=== PATIENT | male | born 1975 | race Caucasian/White ===

== ENCOUNTER 2016-03-19 19:46 | Inpatient (IN) | payer OTHER ==
[2016-03-19 20:05] VITALS: BMI 36.3
--- NOTE | 2016-03-19 20:12 | HP ---
COWS - Scale Resting Pulse: 2= NE 101-120 Sweatin= Chills/Flushing Restless Observation: 1= Difficult to Sit Still Pupil Size: 0= Normal to Room Light Bone or Joint Aches: 2= Severe Diffuse Aches Runny Nose/ Eye Tearin= Runny Nose/Eyes GI Upset > 30mins: 3= Vomiting/Diarrhea Tremor Observation: 2= Slight Tremor Visible Yawning Observation: 1= 1-2x During Session Anxiety or Irritability: 2=Irritable/Anxious Goose Flesh Skin: 0=Smooth Skin COWS Score: 16 CIWA Score - CIWA Score Nausea/Vomitin Muscle Tremors: 4-Moderate,w/Arms Extend Anxiety: 4-Mod. Anxious/Guarded Agitation: 4-Moderately Restless Paroxysmal Sweats: 1-Minimal Palms Moist Orientation: 1-Uncertain about Date Tacttile Disturbances: 0-None Auditory Disturbances: 0-None Visual Disturbances: 0-None Headache: 0-None Present CIWA-Ar Total Score: 16 Admission ROS S - HPI Chief Complaint: withdrawal sx Allergies/Adverse Reactions: Allergies Allergy/AdvReac Type Severity Reaction Status Date / Time No Known Allergies Allergy Verified 03/19/16 20:08 History of Present Illness: 40 years old male with long history of opiate xanax nicotine dependence, has hepatitis c denies mental illness longest sobriety is 3 months is admitted to detox Exam Limitations: No Limitations - Ebola screening Have you traveled outside of the country in the last 21 days: No Have you had contact with anyone from an Ebola affected area: No Have you been sick,other than usual withdrawal symptoms: No Do you have a fever: No - Review of Systems Constitutional: Chills, Changes in sleep, Weight Stable EENT: reports: No Symptoms Reported Respiratory: reports: SOB with Exertion Cardiac: reports: Palpitations GI: reports: Nausea, Poor Fluid Intake, Vomiting, Indigestion, Abdominal cramping : reports: No Symptoms Reported Musculoskeletal: reports: Back Pain, Joint Pain, Muscle Pain, Neck Pain Integumentary: reports: Change in Color (both hands) Neuro: reports: Tremors Endocrine: reports: No Symptoms Reported Hematology: reports: No Symptoms Reported Psychiatric: reports: Judgement Intact, Mood/Affect Appropiate Other Systems: Reviewed and Negative Patient History - Patient Medical History Hx Anemia: No Hx Asthma: No Hx Chronic Obstructive Pulmonary Disease (COPD): No Hx Cancer: No Hx Cardiac Disorders: No Hx Congestive Heart Failure: No Hx Hypertension: No Hx Hypercholesterolemia: No Hx Pacemaker: No HX Cerebrovascular Accident: No Hx Seizures: No Hx Dementia: No Hx Diabetes: No Hx Gastrointestinal Disorders: Yes Hx Liver Disease: No Hx Genitourinary Disorders: No Hx Sexually Transmitted Disorders: No Hx Renal Disease (ESRD): No Hx Thyroid Disease: No Hx Human Immunodeficiency Virus (HIV): No Hx Hepatitis C: Yes Hx Depression: No Hx Suicide Attempt: No Hx Bipolar Disorder: No Hx Schizophrenia: No - Patient Surgical History Past Surgical History: No - PPD History Previous Implant?: Yes Documented Results: Negative w/o proof Implanted On Prior [facility] Admission?: No PPD to be Administered?: Yes - Smoking Cessation Smoking history: Current every day smoker Have you smoked in the past 12 months: Yes Aproximately how many cigarettes per day: 40 Cigars Per Day: 0 Hx Chewing Tobacco Use: No Initiated information on smoking cessation: Yes 'Breaking Loose' booklet given: 03/19/16 - Substance & Tx. History Hx Alcohol Use: Yes Hx Substance Use: Yes Substance Use Type: Alcohol, Cocaine, Opiates, Tranquilizers Hx Substance Use Treatment: Yes - Substances Abused Alcohol Route: Oral Frequency: Daily Amount used: 24oz x24 beer + volka pint Age of first use: 15 Date of Last Use: 03/19/16 Alprazolam (Xanax) Route: Oral Frequency: Daily Amount used: 4-6 mg Age of first use: 35 Date of Last Use: 03/19/16 Heroin Route: Injection Frequency: Daily Amount used: 30 bags Age of first use: 35 Date of Last Use: 03/19/16 Family Disease History - Family Disease History Family Disease History: Diabetes: Mother, Other: Father (no contact) Admission Physical Exam [facility] - Vital Signs Vital Signs: Vital Signs - 24 hr 03/19/16 19:59 Temperature 97.7 F Pulse Rate 101 H Respiratory 20 Rate Blood Pressure 158/94 - Physical General Appearance: Yes: Nourished, Appropriately Dressed, Mild Distress, Tremorous, Irritable, Sweating, Anxious HEENTM: Yes: Hearing grossly Normal, Normal ENT Inspection, Normocephalic, Normal Voice Respiratory: Yes: Chest Non-Tender, Lungs Clear, Normal Breath Sounds, No Respiratory Distress, No Accessory Muscle Use Neck: Yes: Supple, Trachea in good position Breast: Yes: Breasts Symetrical Cardiology: Yes: Regular Rhythm, Regular Rate, S1, S2 Abdominal: Yes: Non Tender, Soft Genitourinary: Yes: Within Normal Limits Back: Yes: Normal Inspection Musculoskeletal: Yes: full range of Motion, Gait Steady, Back pain, Muscle Pain Extremities: Yes: Normal Range of Motion, Non-Tender, Tremors, Other (both hands iv opiate) Neurological: Yes: Alert, Motor Strength 5/5, Normal Response, Depressed Affect Integumentary: Yes: Warm, Track [place] Lymphatic: Yes: Within Normal Limits - Diagnostic (1) Alcohol dependence with uncomplicated withdrawal Current Visit: Yes Status: Acute (2) Opioid dependence with withdrawal Current Visit: Yes Status: Acute (3) Sedative, hypnotic or anxiolytic dependence with withdrawal, uncomplicated Current Visit: Yes Status: Acute (4) GERD (gastroesophageal reflux disease) Current Visit: Yes Status: Acute Qualifiers: Esophagitis presence: without esophagitis Qualified Code(s): K21.9 - Gastro-esophageal reflux disease without esophagitis (5) Nicotine dependence Current Visit: Yes Status: Acute Qualifiers: Nicotine product type: cigarettes Substance use status: uncomplicated Qualified Code(s): F17.210 - Nicotine dependence, cigarettes, uncomplicated (6) Hepatitis C antibody test positive Current Visit: Yes Status: Resolved (7) Vomiting Current Visit: Yes Status: Acute Qualifiers: Vomiting type: unspecified Vomiting Intractability: intractable Nausea presence: with nausea Qualified Code(s): R11.2 - Nausea with vomiting, unspecified Cleared for Admission [facility] - Detox or Rehab [facility] Level of Care: Medically Managed Detox Regimen/Protocol: Methadone/Valium [facility] Breath Alcohol Content Breath Alcohol Content: 0 Urine Drug Screen - Results Urine Drug Screen Results: DAMIR-Cocaine, OPI-Opiates, BZO-Benzodiazepines, MTD- Methadone
[2016-03-19] MEDS ORDERED: MENTHOL/PHENOL 1 EACH UD MM PRN (20:18)
[2016-03-19] MEDS ORDERED: MAGNESIUM HYDROX 2400MG/30ML ORAL SUSPENSION 30 ML CUP PO PRN (20:18)
[2016-03-19] MEDS ORDERED: NICOTINE POLACRILEX 2 MG GUM BC PRN (20:18)
[2016-03-19] MEDS ORDERED: MAGNESIUM CITRATE 300 ML BOTTLE PO PRN (20:18)
[2016-03-19] MEDS ORDERED: LOPERAMIDE HCL 2 MG CAPSULE PO PRN (20:18)
[2016-03-19] MEDS ORDERED: MAG HYDROX/AL HYDROX/SIMETH 30 ML UNIT-DOSE CUP PO PRN (20:18)
[2016-03-19] MEDS ORDERED: ACETAMINOPHEN 325 MG TABLET (FP) PO PRN (20:18)
[2016-03-19] MEDS ORDERED: METHADONE HCL 10 MG TABLET (FOR DETOX USE ONLY) PO ONE ×2 (20:18→23:00)
[2016-03-19] MEDS ORDERED: diazePAM 5 MG TABLET PO ONE (20:18)
[2016-03-19] MEDS ORDERED: P-EPHED 60MG/TRIPROLIDI 2.5MG TABLET PO PRN (20:18)
[2016-03-19] MEDS ORDERED: IBUPROFEN 400 MG TABLET (FP) PO PRN (20:18)
[2016-03-19] MEDS ORDERED: guaiFENesin/D-METHORPHAN HB 10 ML UNIT-DOSE CUPS PO PRN (20:18)
[2016-03-19] MEDS ORDERED: ONDANSETRON *ODT* 4 MG TABLET SL PRN (20:20)
[2016-03-19] MEDS ORDERED: cloNIDine HCL 0.1 MG TABLET PO PRN (20:21)
[2016-03-19] MEDS: RANITIDINE HCL 150 MG TABLET (FP) PO SCH (22:25)
[2016-03-19] MEDS: THIAMINE HCL 100 MG TABLET (FP) PO SCH (22:25)
[2016-03-19] MEDS: diphenhydrAMINE HCL 50 MG CAPSULE PO PRN (22:26)
[2016-03-19 23:06] LABS: PH,URINE 7.5 (5.0-8.0); URINE APPEARANCE CLEAR; URINE BILIRUBIN NEGATIVE (NEGATIVE); URINE BLOOD NEGATIVE (NEGATIVE); URINE COLOR LT. YELLOW; URINE GLUCOSE (UA) NEGATIVE (NEGATIVE); URINE KETONE NEGATIVE (NEGATIVE); URINE LEUK ESTERASE NEGATIVE (NEGATIVE); URINE NITRITE NEGATIVE (NEGATIVE); URINE PROTEIN NEGATIVE (NEGATIVE); URINE UROBILINOGEN 0.2 E.U/dl E.U./dl (0.2-1.0)
[2016-03-19] MEDS: diazePAM 5 MG TABLET PO SCH (23:32)
[2016-03-20] MEDS: CYCLOBENZAPRINE HCL 10 MG TABLET (FP) PO PRN ×2 (05:37→10:15)
[2016-03-20] MEDS: diazePAM 5 MG TABLET PO SCH ×3 (05:37→22:11)
--- NOTE | 2016-03-20 08:43 | CONSULT ---
[facility] Psychiatric Consult - Data Date of interview: 03/20/16 Admission source: [facility] Identifying data: This is 40 years old male with no psychiatric hospitalization history intoxicated with: Alcohol, Opioids, Xanax and Nicotine Substance Abuse History: - Smoking Cessation. Smoking history: Current every day smoker. Have you smoked in the past 12 months: Yes. Aproximately how many cigarettes per day: 40. Cigars Per Day: 0. Hx Chewing Tobacco Use: No. Initiated information on smoking cessation: Yes. 'Breaking Loose' booklet given : 03/19/16. - Substance & Tx. History. Hx Alcohol Use: Yes. Hx Substance Use : Yes. Substance Use Type: Alcohol, Cocaine, Opiates, Tranquilizers. Hx Substance Use Treatment: Yes. - Substances Abused. Alcohol. Route: Oral. Frequency: Daily. Amount used: 24oz x24 beer + volka pint. Age of first use: 15. Date of Last Use: 03/19/16. Alprazolam (Xanax). Route: Oral. Frequency: Daily. Amount used: 4-6 mg. Age of first use: 35. Date of Last Use : 03/19/16. Heroin. Route: Injection. Frequency: Daily. Amount used: 30 bags. Age of first use: 35. Date of Last Use: 03/19/16 Medical History: GERD Psychiatric History: Denies Physical/Sexual Abuse/Trauma History: Denies Additional Comment: Observation. Detox Unit Care Protocol Mental Status Exam - Mental Status Exam Alert and Oriented to: Person Cognitive Function: Fair Patient Appearance: Unkempt Mood: Sad Affect: Flat Patient Behavior: Sedated Speech Pattern: Delayed Voice Loudness: Mildly Soft/Quiet Thought Process: Circumstantial Thought Disorder: Being Controlled Hallucinations: Denies Suicidal Ideation: Denies Homicidal Ideation: Denies Insight/Judgement: Fair Sleep: Difficulty falling asleep Appetite: Fair Muscle strength/Tone: Normal Gait/Station: Normal Additional Comments: Observation. Detox Unit Care Protocol Psychiatric Findings - Problem List ([place] 1, 2,3) (1) Alcohol dependence with uncomplicated withdrawal Current Visit: Yes Status: Acute (2) Opioid dependence with withdrawal Current Visit: Yes Status: Acute (3) Sedative, hypnotic or anxiolytic dependence with withdrawal, uncomplicated Current Visit: Yes Status: Acute (4) Drug-induced mood disorder Current Visit: Yes Status: Suspected - Initial Treatment Plan Initial Treatment Plan: Observation. Detox Unit Care Protocol
[2016-03-20] MEDS ORDERED: METHADONE HCL 10 MG TABLET (FOR DETOX USE ONLY) PO SCH (10:00)
[2016-03-20 10:15] LABS: MCH 28.4 pg (25.7-33.7); MCHC 33.9 g/dl (32.0-35.9); MEAN CELL VOLUME 83.6 fl (80-96); MEAN PLT VOLUME 7.8 fl (7.5-11.1); PLATELET COUNT 184 K/MM3 (134-434); RDW 14.1 % (11.9-15.9); WHITE BLOOD COUNT 7.2 K/mm3 (4.0-10.0)
[2016-03-20] MEDS: NICOTINE 21 MG/24 HOURS TOPICAL PATCH TD SCH (10:15)
[2016-03-20] MEDS: diazePAM 5 MG TABLET PO PRN ×2 (10:15→20:45)
[2016-03-20] MEDS: PRENATAL VITAMINS W/ FOLIC ACID TABLET (FP) PO SCH (10:15)
[2016-03-20] MEDS: RANITIDINE HCL 150 MG TABLET (FP) PO SCH ×2 (10:15→22:11)
--- NOTE | 2016-03-20 10:16 | PN ---
[facility] CIWA - CIWA Score Nausea/Vomitin-No Nausea/No Vomiting Muscle Tremors: 4-Moderate,w/Arms Extend Anxiety: 4-Mod. Anxious/Guarded Agitation: 4-Moderately Restless Paroxysmal Sweats: 1-Minimal Palms Moist Orientation: 0-Oriented Tacttile Disturbances: 3-Moderate Itch/Numb/Burn Auditory Disturbances: 0-None Visual Disturbances: 0-None Headache: 0-None Present CIWA-Ar Total Score: 16 S COWS - Scale Resting Pulse: 0= [place] 80 or Below Sweatin= Chills/Flushing Restless Observation: 3= Extraneous Movement Pupil Size: 2= Moderately Dilated Bone or Joint Aches: 4=Acute Joint/Muscle Pain Runny Nose/ Eye Tearin= Nasal Congestion GI Upset > 30mins: 1= Stomach Cramp Tremor Observation of Outstretched Hands: 1= Tremor [place], Not Seen Yawning Observation: 1= 1-2x During Session Anxiety or Irritability: 1=Feels Anxious/Irritable Goose Flesh Skin: 0=Smooth Skin COWS Score: 15 [facility] Progress Note (SOAP) Subjective: ANXIETY,RESTLESSNESS,SWEATS,FATIGUE. Objective: 03/20/16 10:15 Vital Signs Temperature 97.6 F 03/20/16 06:39 Pulse Rate 59 L 03/20/16 06:39 Respiratory Rate 16 03/20/16 06:39 Blood Pressure 108/74 03/20/16 06:39 O2 Sat by Pulse Oximetry (%) Laboratory Last Values Urine Color Lt. yellow 03/19/16 22:19 Urine Appearance Clear 03/19/16 22:19 Urine pH 7.5 (5.0-8.0) 03/19/16 22:19 Ur Specific [place] 1.015 (1.001-1.035) 03/19/16 22:19 Urine Protein Negative (NEGATIVE) 03/19/16 22:19 Urine Glucose (UA) Negative (NEGATIVE) 03/19/16 22:19 Urine Ketones Negative (NEGATIVE) 03/19/16 22:19 Urine Blood Negative (NEGATIVE) 03/19/16 22:19 Urine Nitrite Negative (NEGATIVE) 03/19/16 22:19 Urine Bilirubin Negative (NEGATIVE) 03/19/16 22:19 Urine Urobilinogen 0.2 e.u/dl E.U./dl (0.2-1.0) 03/19/16 22:19 Ur Leukocyte Esterase Negative (NEGATIVE) 03/19/16 22:19 OTHER LABS PENDING Assessment: 03/20/16 10:16 WITHDRAWAL SX Plan: CONTINUE DETOX
[2016-03-20 10:34] LABS: ALBUMIN 3.3 g/dl (3.4-5.0); ALK PHOS 96 U/L (45-117); ANION GAP 5 (8-16); BILIRUBIN,TOTAL 0.5 mg/dL (0.2-1.0); CO2 31 mmol/L (21-32); CREATININE 0.9 mg/dL (0.7-1.3); GLUCOSE,RANDOM 86 mg/dL (74-106); SGOT/AST 13 U/L (15-37); SGPT/ALT 17 U/L (12-78); TOT PROT 6.3 g/dl (6.4-8.2)
[2016-03-20 11:11] LABS: HIV 1 & 2 AB NEGATIVE; HIV 1 AGp24 NEGATIVE
--- NOTE | 2016-03-20 16:33 | EKG ---
Test Reason : Blood Pressure : / mmHG Vent. Rate : 079 BPM Atrial Rate : 079 BPM P-R Int : 140 ms QRS Dur : 100 ms QT Int : 386 ms P-R-T Axes : 050 037 034 degrees QTc Int : 442 ms NORMAL SINUS RHYTHM NORMAL ECG NO PREVIOUS ECGS AVAILABLE Confirmed by GOLDY TORO MD ([id number]) on 03/20/2016 4:33:25 PM Referred By: Confirmed By:GOLDY TORO MD
[2016-03-20] MEDS: THIAMINE HCL 100 MG TABLET (FP) PO SCH (22:11)
[2016-03-21] MEDS: CYCLOBENZAPRINE HCL 10 MG TABLET (FP) PO PRN (05:45)
[2016-03-21] MEDS: diazePAM 5 MG TABLET PO PRN ×3 (05:45→17:44)
[2016-03-21] MEDS ORDERED: CYCLOBENZAPRINE HCL 10 MG TABLET (FP) PO ONE (09:23)
[2016-03-21] MEDS: METHADONE HCL 5 MG TABLET (FOR DETOX USE ONLY) PO SCH (10:02)
[2016-03-21] MEDS: PRENATAL VITAMINS W/ FOLIC ACID TABLET (FP) PO SCH (10:02)
[2016-03-21] MEDS: RANITIDINE HCL 150 MG TABLET (FP) PO SCH ×2 (10:02→22:09)
[2016-03-21] MEDS: cloNIDine HCL 0.1 MG TABLET PO SCH ×2 (10:02→22:09)
[2016-03-21] MEDS: diazePAM 5 MG TABLET PO SCH ×2 (10:02→22:09)
[2016-03-21] MEDS: NICOTINE 21 MG/24 HOURS TOPICAL PATCH TD SCH (10:02)
--- NOTE | 2016-03-21 11:08 | PN ---
[facility] CIWA - CIWA Score Nausea/Vomitin-No Nausea/No Vomiting Muscle Tremors: 4-Moderate,w/Arms Extend Anxiety: 5 Agitation: 4-Moderately Restless Paroxysmal Sweats: 1-Minimal Palms Moist Orientation: 0-Oriented Tacttile Disturbances: 3-Moderate Itch/Numb/Burn Auditory Disturbances: 0-None Visual Disturbances: 0-None Headache: 0-None Present CIWA-Ar Total Score: 17 [facility] COWS - Scale Resting Pulse: 1= [place] 81-100 Sweatin= Chills/Flushing Restless Observation: 3= Extraneous Movement Pupil Size: 2= Moderately Dilated Bone or Joint Aches: 4=Acute Joint/Muscle Pain Runny Nose/ Eye Tearin= Nasal Congestion GI Upset > 30mins: 1= Stomach Cramp Tremor Observation of Outstretched Hands: 2= Slight Tremor Visible Yawning Observation: 2= >3x During Session Anxiety or Irritability: 2=Irritable/Anxious Goose Flesh Skin: 0=Smooth Skin COWS Score: 19 S Progress Note (SOAP) Subjective: ANXIETY,IRRITABILITY,SWEATS,AGITATIONS,INTERMITTENT SLEEP. Objective: 03/21/16 11:08 Vital Signs Temperature 97.5 F L 03/21/16 09:47 Pulse Rate 100 H 03/21/16 09:47 Respiratory Rate 18 03/21/16 09:47 Blood Pressure 125/85 03/21/16 09:47 O2 Sat by Pulse Oximetry (%) Laboratory Last Values WBC 7.2 K/mm3 (4.0-10.0) 03/20/16 06:30 RBC 4.75 M/mm3 (4.00-5.60) 03/20/16 06:30 Hgb 13.5 GM/dL (11.7-16.9) 03/20/16 06:30 Hct 39.7 % (35.4-49) 03/20/16 06:30 MCV 83.6 fl (80-96) 03/20/16 06:30 MCHC 33.9 g/dl (32.0-35.9) 03/20/16 06:30 RDW 14.1 % (11.9-15.9) 03/20/16 06:30 Plt Count 184 K/MM3 (134-434) 03/20/16 06:30 MPV 7.8 fl (7.5-11.1) 03/20/16 06:30 Sodium 142 mmol/L (136-145) 03/20/16 06:30 Potassium 4.3 mmol/L (3.5-5.1) 03/20/16 06:30 Chloride 106 mmol/L (98-107) 03/20/16 06:30 Carbon Dioxide 31 mmol/L (21-32) 03/20/16 06:30 Anion Gap 5 (8-16) L 03/20/16 06:30 BUN 17 mg/dL (7-18) 03/20/16 06:30 Creatinine 0.9 mg/dL (0.7-1.3) 03/20/16 06:30 Creat Clearance w eGFR > 60 (>60) 03/20/16 06:30 Random Glucose 86 mg/dL (74-106) 03/20/16 06:30 Calcium 9.0 mg/dL (8.5-10.1) 03/20/16 06:30 Total Bilirubin 0.5 mg/dL (0.2-1.0) 03/20/16 06:30 AST 13 U/L (15-37) L 03/20/16 06:30 ALT 17 U/L (12-78) 03/20/16 06:30 Alkaline Phosphatase 96 U/L (45-117) 03/20/16 06:30 Total Protein 6.3 g/dl (6.4-8.2) L 03/20/16 06:30 Albumin 3.3 g/dl (3.4-5.0) L 03/20/16 06:30 Urine Color Lt. yellow 03/19/16 22:19 Urine Appearance Clear 03/19/16 22:19 Urine pH 7.5 (5.0-8.0) 03/19/16 22:19 Ur Specific [place] 1.015 (1.001-1.035) 03/19/16 22:19 Urine Protein Negative (NEGATIVE) 03/19/16 22:19 Urine Glucose (UA) Negative (NEGATIVE) 03/19/16 22:19 Urine Ketones Negative (NEGATIVE) 03/19/16 22:19 Urine Blood Negative (NEGATIVE) 03/19/16 22:19 Urine Nitrite Negative (NEGATIVE) 03/19/16 22:19 Urine Bilirubin Negative (NEGATIVE) 01/11/17 22:19 Urine Urobilinogen 0.2 e.u/dl E.U./dl (0.2-1.0) 03/19/16 22:19 Ur Leukocyte Esterase Negative (NEGATIVE) 03/19/16 22:19 RPR Titer Nonreactive (NONREACTIVE) 03/20/16 06:30 HIV 1&2 Antibody Screen Negative 03/20/16 08:40 HIV P24 Antigen Negative 03/20/16 08:40 Assessment: 03/21/16 11:08 WITHDRAWAL SX Plan: CONTINUE DETOX
[2016-03-21] MEDS: CYCLOBENZAPRINE HCL 10 MG TABLET (FP) PO SCH ×2 (13:18→22:09)
[2016-03-21] MEDS: THIAMINE HCL 100 MG TABLET (FP) PO SCH (22:09)
[2016-03-21] MEDS: diphenhydrAMINE HCL 50 MG CAPSULE PO PRN (22:10)
[2016-03-22] MEDS: diazePAM 5 MG TABLET PO PRN ×2 (00:49→13:38)
[2016-03-22] MEDS: CYCLOBENZAPRINE HCL 10 MG TABLET (FP) PO SCH ×3 (05:32→22:15)
[2016-03-22] MEDS: METHADONE HCL 5 MG TABLET (FOR DETOX USE ONLY) PO SCH (10:21)
[2016-03-22] MEDS: RANITIDINE HCL 150 MG TABLET (FP) PO SCH ×2 (10:21→22:15)
[2016-03-22] MEDS: diazePAM 5 MG TABLET PO SCH ×2 (10:21→22:15)
[2016-03-22] MEDS: PRENATAL VITAMINS W/ FOLIC ACID TABLET (FP) PO SCH (10:22)
[2016-03-22] MEDS: cloNIDine HCL 0.1 MG TABLET PO SCH ×2 (10:22→22:16)
[2016-03-22] MEDS: NICOTINE 21 MG/24 HOURS TOPICAL PATCH TD SCH (10:22)
--- NOTE | 2016-03-22 15:53 | PN ---
[facility] Progress Note (SOAP) Subjective: poor sleep, anxious, restless Objective: 03/22/16 15:52 Laboratory Tests 03/19/16 03/20/16 03/20/16 22:19 06:30 06:30 WBC 7.2 RBC 4.75 Hgb 13.5 Hct 39.7 MCV 83.6 MCHC 33.9 RDW 14.1 Plt Count 184 MPV 7.8 Sodium 142 Potassium 4.3 Chloride 106 Carbon Dioxide 31 Anion Gap 5 L BUN 17 Creatinine 0.9 Creat Clearance w eGFR > 60 Random Glucose 86 Calcium 9.0 Total Bilirubin 0.5 AST 13 L ALT 17 Alkaline Phosphatase 96 Total Protein 6.3 L Albumin 3.3 L Urine Color Lt. yellow Urine Appearance Clear Urine pH 7.5 Ur Specific [place] 1.015 Urine Protein Negative Urine Glucose (UA) Negative Urine Ketones Negative Urine Blood Negative Urine Nitrite Negative Urine Bilirubin Negative Urine Urobilinogen 0.2 e.u/dl Ur Leukocyte Esterase Negative RPR Titer HIV 1&2 Antibody Screen HIV P24 Antigen 03/20/16 03/20/16 06:30 08:40 WBC RBC Hgb Hct MCV MCHC RDW Plt Count MPV Sodium Potassium Chloride Carbon Dioxide Anion Gap BUN Creatinine Creat Clearance w eGFR Random Glucose Calcium Total Bilirubin AST ALT Alkaline Phosphatase Total Protein Albumin Urine Color Urine Appearance Urine pH Ur Specific [place] Urine Protein Urine Glucose (UA) Urine Ketones Urine Blood Urine Nitrite Urine Bilirubin Urine Urobilinogen Ur Leukocyte Esterase RPR Titer Nonreactive HIV 1&2 Antibody Screen Negative HIV P24 Antigen Negative Vital Signs - 24 hr 03/21/16 03/21/16 03/22/16 17:44 22:12 00:28 Temperature 97.6 F 97 F L Pulse Rate 66 86 Respiratory 19 19 18 Rate Blood Pressure 97/54 125/90 03/22/16 03/22/16 03/22/16 03:30 06:35 09:39 Temperature 96.7 F L 98.1 F Pulse Rate 78 78 97 H Respiratory 18 18 18 Rate Blood Pressure 129/92 125/87 03/22/16 14:12 Temperature 98.2 F Pulse Rate 83 Respiratory 18 Rate Blood Pressure 116/81 Assessment: 03/22/16 15:52 ongoing withdrawal Plan: continue detox protocol
[2016-03-22] MEDS: THIAMINE HCL 100 MG TABLET (FP) PO SCH (22:15)
[2016-03-22] MEDS: diphenhydrAMINE HCL 50 MG CAPSULE PO PRN (22:16)
[2016-03-23] MEDS: CYCLOBENZAPRINE HCL 10 MG TABLET (FP) PO SCH ×3 (05:28→22:10)
[2016-03-23] MEDS ORDERED: METHADONE HCL 10 MG TABLET (FOR DETOX USE ONLY) PO SCH (10:00)
[2016-03-23] MEDS ORDERED: diazePAM 5 MG TABLET PO SCH (10:00)
[2016-03-23] MEDS: cloNIDine HCL 0.1 MG TABLET PO SCH ×2 (10:19→22:10)
[2016-03-23] MEDS: RANITIDINE HCL 150 MG TABLET (FP) PO SCH ×2 (10:19→22:11)
[2016-03-23] MEDS: PRENATAL VITAMINS W/ FOLIC ACID TABLET (FP) PO SCH (10:19)
[2016-03-23] MEDS: NICOTINE 21 MG/24 HOURS TOPICAL PATCH TD SCH (10:20)
[2016-03-23] MEDS ORDERED: ZOLPIDEM TARTRATE 5 MG TABLET PO PRN (15:44)
--- NOTE | 2016-03-23 15:44 | PN ---
S Progress Note (SOAP) Subjective: Tremor, anxiety, interrupted sleep (wants ambien; benadryl ineffective) Objective: 03/23/16 15:42 Last Vital Signs Temp Pulse Resp BP Pulse Ox 97.8 F 94 H 20 105/64 03/23/16 13:42 03/23/16 13:42 03/23/16 13:42 03/23/16 13:42 Laboratory Tests 03/19/16 03/20/16 03/20/16 22:19 06:30 06:30 WBC 7.2 RBC 4.75 Hgb 13.5 Hct 39.7 MCV 83.6 MCHC 33.9 RDW 14.1 Plt Count 184 MPV 7.8 Sodium 142 Potassium 4.3 Chloride 106 Carbon Dioxide 31 Anion Gap 5 L BUN 17 Creatinine 0.9 Creat Clearance w eGFR > 60 Random Glucose 86 Calcium 9.0 Total Bilirubin 0.5 AST 13 L ALT 17 Alkaline Phosphatase 96 Total Protein 6.3 L Albumin 3.3 L Urine Color Lt. yellow Urine Appearance Clear Urine pH 7.5 Ur Specific [place] 1.015 Urine Protein Negative Urine Glucose (UA) Negative Urine Ketones Negative Urine Blood Negative Urine Nitrite Negative Urine Bilirubin Negative Urine Urobilinogen 0.2 e.u/dl Ur Leukocyte Esterase Negative RPR Titer HIV 1&2 Antibody Screen HIV P24 Antigen 03/20/16 03/20/16 06:30 08:40 WBC RBC Hgb Hct MCV MCHC RDW Plt Count MPV Sodium Potassium Chloride Carbon Dioxide Anion Gap BUN Creatinine Creat Clearance w eGFR Random Glucose Calcium Total Bilirubin AST ALT Alkaline Phosphatase Total Protein Albumin Urine Color Urine Appearance Urine pH Ur Specific [place] Urine Protein Urine Glucose (UA) Urine Ketones Urine Blood Urine Nitrite Urine Bilirubin Urine Urobilinogen Ur Leukocyte Esterase RPR Titer Nonreactive HIV 1&2 Antibody Screen Negative HIV P24 Antigen Negative Labs noted Assessment: 03/23/16 15:43 Withdrawal symptoms Plan: Continue detox Ambien 10mg PO qhs prn for interrupted sleep
[2016-03-23] MEDS: THIAMINE HCL 100 MG TABLET (FP) PO SCH (22:11)
[2016-03-24] MEDS ORDERED: METHADONE HCL 5 MG TABLET (FOR DETOX USE ONLY) PO SCH (06:00)
[2016-03-24] MEDS: CYCLOBENZAPRINE HCL 10 MG TABLET (FP) PO SCH (06:07)
[2016-03-24 06:43] VITALS: BP 109/81; PULSE 89; TEMP 97
[2016-03-24] MEDS: cloNIDine HCL 0.1 MG TABLET PO SCH (09:32)
[2016-03-24] MEDS: NICOTINE 21 MG/24 HOURS TOPICAL PATCH TD SCH (09:32)
[2016-03-24] MEDS: PRENATAL VITAMINS W/ FOLIC ACID TABLET (FP) PO SCH (09:33)
[2016-03-24] MEDS: RANITIDINE HCL 150 MG TABLET (FP) PO SCH (09:33)
--- NOTE | 2016-03-24 10:17 | DS ---
[facility] Detox Discharge Summary Admission Date: 03/19/16 Discharge Date: 03/24/16 - History Present History: Alcohol Dependence, Cocaine Dependence, Opioid Dependence, Sedative Dependence Pertinent Past History: Hep C Drug Induced Mod Disorder - Physical Exam Results Vital Signs: Vital Signs Temperature 97.0 F L 03/24/16 06:42 Pulse Rate 89 03/24/16 06:42 Respiratory Rate 18 03/24/16 06:42 Blood Pressure 109/81 03/24/16 06:42 O2 Sat by Pulse Oximetry (%) Pertinent Admission Physical Exam Findings: Withdrawal Symptoms Laboratory Last Values WBC 7.2 K/mm3 (4.0-10.0) 03/20/16 06:30 RBC 4.75 M/mm3 (4.00-5.60) 03/20/16 06:30 Hgb 13.5 GM/dL (11.7-16.9) 03/20/16 06:30 Hct 39.7 % (35.4-49) 03/20/16 06:30 MCV 83.6 fl (80-96) 03/20/16 06:30 MCHC 33.9 g/dl (32.0-35.9) 03/20/16 06:30 RDW 14.1 % (11.9-15.9) 03/20/16 06:30 Plt Count 184 K/MM3 (134-434) 03/20/16 06:30 MPV 7.8 fl (7.5-11.1) 03/20/16 06:30 Sodium 142 mmol/L (136-145) 03/20/16 06:30 Potassium 4.3 mmol/L (3.5-5.1) 03/20/16 06:30 Chloride 106 mmol/L (98-107) 03/20/16 06:30 Carbon Dioxide 31 mmol/L (21-32) 03/20/16 06:30 Anion Gap 5 (8-16) L 03/20/16 06:30 BUN 17 mg/dL (7-18) 03/20/16 06:30 Creatinine 0.9 mg/dL (0.7-1.3) 03/20/16 06:30 Creat Clearance w eGFR > 60 (>60) 03/20/16 06:30 Random Glucose 86 mg/dL (74-106) 03/20/16 06:30 Calcium 9.0 mg/dL (8.5-10.1) 03/20/16 06:30 Total Bilirubin 0.5 mg/dL (0.2-1.0) 03/20/16 06:30 AST 13 U/L (15-37) L 03/20/16 06:30 ALT 17 U/L (12-78) 03/20/16 06:30 Alkaline Phosphatase 96 U/L (45-117) 03/20/16 06:30 Total Protein 6.3 g/dl (6.4-8.2) L 03/20/16 06:30 Albumin 3.3 g/dl (3.4-5.0) L 03/20/16 06:30 Urine Color Lt. yellow 03/19/16 22:19 Urine Appearance Clear 03/19/16 22:19 Urine pH 7.5 (5.0-8.0) 03/19/16 22:19 Ur Specific [place] 1.015 (1.001-1.035) 03/19/16 22:19 Urine Protein Negative (NEGATIVE) 03/19/16 22:19 Urine Glucose (UA) Negative (NEGATIVE) 03/19/16 22:19 Urine Ketones Negative (NEGATIVE) 03/19/16 22:19 Urine Blood Negative (NEGATIVE) 03/19/16 22:19 Urine Nitrite Negative (NEGATIVE) 03/19/16 22:19 Urine Bilirubin Negative (NEGATIVE) 03/19/16 22:19 Urine Urobilinogen 0.2 e.u/dl E.U./dl (0.2-1.0) 03/19/16 22:19 Ur Leukocyte Esterase Negative (NEGATIVE) 03/19/16 22:19 RPR Titer Nonreactive (NONREACTIVE) 03/20/16 06:30 HIV 1&2 Antibody Screen Negative 03/20/16 08:40 HIV P24 Antigen Negative 03/20/16 08:40 labs noted - Treatment Hospital Course: Detox Protocol Followed, Detoxed Safely, Responded well, Discharged Condition Good - Medication Discharge Medications: Ambulatory Orders NK [No Known Home Medication] 03/19/16 - Diagnosis (1) Alcohol dependence with uncomplicated withdrawal Current Visit: Yes Status: Acute (2) Nicotine dependence Current Visit: Yes Status: Acute Qualifiers: Nicotine product type: cigarettes Substance use status: uncomplicated Qualified Code(s): F17.210 - Nicotine dependence, cigarettes, uncomplicated (3) Opioid dependence with withdrawal Current Visit: Yes Status: Acute (4) Sedative, hypnotic or anxiolytic dependence with withdrawal, uncomplicated Current Visit: Yes Status: Acute (5) Drug-induced mood disorder Current Visit: Yes Status: Suspected (6) Hepatitis C antibody test positive Current Visit: Yes Status: Resolved - AMA Did Patient Leave Against Medical Advice: No
== END 2016-03-24 10:00 | disposition home or self-care (01) | DRG 773 ==
LOC: YASAS 19:46 → Y3N 19:51
PROVIDERS: ADMIT Internal Medicine; ATTEND Internal Medicine
PROC: HZ2ZZZZ Detoxification Services for Substance Abuse Treatment (ICD-10-PCS; principal; 2016-03-19)
DX: F11.23 Opioid dependence with withdrawal (principal); F13.230 Sedative, hypnotic or anxiolytic dependence with withdrawal, uncomplicated; F10.230 Alcohol dependence with withdrawal, uncomplicated; F17.210 Nicotine dependence, cigarettes, uncomplicated; F19.24 Other psychoactive substance dependence with psychoactive substance-induced mood disorder; B18.2 Chronic viral hepatitis C; K21.9 Gastro-esophageal reflux disease without esophagitis; R11.2 Nausea with vomiting, unspecified
CPT/HCPCS: 36415; 80053; 81003; 85027; 86593; 87389; 93005; 93010